=== PATIENT | female | born 1990 | race Hispanic/Latino ===

== ENCOUNTER 2025-01-11 01:30 | Emergency (ER) | payer OTHER ==
[~2025-01-11] VITALS: Ht 162.6 cm; Wt 55.8 kg
[2025-01-11 01:40] VITALS: PULSE 91; RESP 16; TEMP 99.3
[2025-01-11] MEDS: LORAZEPAM INJ 2 MG/ML VIAL IV ONE (02:22)
[2025-01-11] MEDS: SODIUM CHLORIDE 0.9% 1000ML 1,000 ML IV ONE (02:26)
[2025-01-11 03:15] VITALS: BP 146/80; PULSE 86; RESP 18; TEMP 99; O2SAT 100
== END 2025-01-11 03:15 | disposition home or self-care (01) ==
LOC: FSED 02:02
DX: F41.9 Anxiety disorder, unspecified (principal); D64.9 Anemia, unspecified; I10 Essential (primary) hypertension; E11.65 Type 2 diabetes mellitus with hyperglycemia; E03.9 Hypothyroidism, unspecified
CPT/HCPCS: 80053; 80307; 81003; 81025; 84484; 85025; 93005; 99283; J2060; J7030